=== PATIENT | male | born 1950 | race Caucasian/White ===

== ENCOUNTER 2020-04-02 16:35 | IRF | payer MEDICARE, OTHER, SELFPAY ==
[2020-04-02 17:50] VITALS: BP 119/95; PULSE 86; RESP 20; TEMP 36.2; O2SAT 100; BMI 21.2
--- NOTE | 2020-04-02 18:03 | ADMGEN ---
Arrived via personal transportation and up to room at 1635. This patient, Julián Swain, was admitted to [facility] Room 224-02. Patient/family oriented to hospital policies and general routines including ID bracelet, bed and alarms, visiting hours, pain management, procedures, bathroom and other care routines, personal items, smoking policy, room service/diet, and visiting hours. Information on how to activate the Rapid Response Team has been discussed. Patient/Family are encouraged to report perceived risks to care and to ask questions if they do not understand what they are told or what they should do.
[2020-04-02 20:07] VITALS: PULSE 86
[2020-04-02] MEDS: PYRIDOXINE HCL 50 MG TABLET 100 MG PO (20:07)
[2020-04-02] MEDS: ACYCLOVIR 400 MG TABLET PO (20:07)
[2020-04-02] MEDS: METOPROLOL TARTRATE 12.5 MG TABLET PO (20:07)
[2020-04-02] MEDS: PANTOPRAZOLE 40 MG TABLET PO (20:08)
[2020-04-02 21:49] VITALS: BP 115/55; PULSE 83; RESP 18; TEMP 37.6; O2SAT 97
[2020-04-03 05:06] LABS: Basophils Percent Auto 0.4 % (0.2-1.2); Eosinophils Percent Auto 0.2 % (0-4.4); Hematocrit 28.6 % (42.0-52.0); Hemoglobin 9.5 g/dL (14.0-18.0); Immature Granulocyte Absolute 0.03 K/mm3 (0.00-0.031); Immature Granulocyte Percent A 0.3 % (0-0.5); Lymphocytes Absolute Auto 2.32 K/mm3 (0.9-3.2); Lymphocytes Percent Auto 24.4 % (18.3-44.2); Mean Corpuscular HGB Conc 33.2 g/dl (32-36); Mean Corpuscular Hemoglobin 31.6 pg (26-34); Mean Platelet Volume 11.3 fl (7.4-10.4); Monocytes Absolute Auto 1.8 K/mm3 (0.1-0.6); Monocytes Percent Auto 19.3 % (2.6-8.5); Neutrophils Absolute Auto 5.3 K/mm3 (1.3-6.7); Neutrophils Percent Auto 55.4 % (45.5-73.1); Platelet Count Result 227 k/mm3 (150-375); Red Blood Count 3.01 M/mm3 (4.6-6.20); Red Cell Distribution Width 18.3 % (11.5-14.5); White Blood Count 9.5 K/mm3 (4.5-10.0)
[2020-04-03 05:30] VITALS: BP 116/61; PULSE 88; RESP 12; TEMP 36.8; O2SAT 100
[2020-04-03 05:35] LABS: Anion Gap 6 mmol/L (8-16); Blood Urea Nitrogen 12 mg/dL (9-20); Calcium 8.8 mg/dL (8.4-10.2); Carbon Dioxide 27 mmol/L (22-30); Chloride 101 mmol/L (98-107); Estimated CRCL calculation 67 ml/min; Estimated Glomerular Filt Rate > 60; Glucose 105 mg/dL (75-110); Potassium 4.1 mmol/L (3.4-5.0); Sodium 134 mmol/L (137-145)
[2020-04-03] MEDS: ACYCLOVIR 400 MG TABLET PO ×3 (05:57→20:49)
[2020-04-03 08:22] VITALS: PULSE 96
[2020-04-03] MEDS: CYANOCOBALAMIN 1,000 MCG TABLET 1000 MCG PO (08:22)
[2020-04-03] MEDS: METOPROLOL TARTRATE 12.5 MG TABLET PO ×2 (08:22→20:49)
[2020-04-03] MEDS: PYRIDOXINE HCL 50 MG TABLET 100 MG PO ×2 (08:22→17:20)
[2020-04-03] MEDS: THERAPEUTIC MULTIVITAMINS/MINERALS TAB (*BKC) 1 TABLET PO (08:23)
[2020-04-03] MEDS: PANTOPRAZOLE 40 MG TABLET PO ×2 (08:23→20:49)
--- NOTE | 2020-04-03 09:38 | PCPTNOTE ---
Julián Swain was evaluated for a wheeled walker on 04/03/2020 by this physical therapist. The wheeled walker will resolve patient's mobility limitations and will be used for ADL's within the home. The patient can safely use the wheeled walker. ?The wheeled walker will resolve the patient?s mobility deficits, including decreased strength and endurance.
--- NOTE | 2020-04-03 12:38 | WPDREHABHP ---
H&P: HPI History of Present Illness Date/Time: 04/03/20 12:38 [place] Complaint: GI bleed Narrative: Julián Swain is a 69 year old maleHISTORY OF PRESENT ILLNESS: The patient's primary rehab impairment category i Miscellaneous The etiologic diagnosis is GI bleed I saw this patient [id number] on April 03, 2020 at 11:00 a.m. the patient is 69 years old male with a past medical history of hypertension, PE /DVT, peripheral neuropathy, vertigo, presented to local hospital with anemia in June of 2019 and was found to have a large intra-abdominal mass involving the stomach, His spleen pancreas and left adrenal gland. 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 Pretreatment workup showed an ejection fraction of 59% and COVID-19 negative on February 28, 2020. Following the transplant the patient developed pancytopenia with neutropenic fevers and was started on cefepime. And platelets were 3 and he had an acute onset of abdominal pain, nausea and hematemesis. Blood pressure were low and he developed tachycardia so he was transferred to ICU. He received 2units of platelets and 3units of packed RBCs. Gastroenterology was consulted and the patient underwent an EGD on March 20, 2020 which found an extensive blood clot in the stomach and esophagus. The procedure was long in duration with prolonged attempts to remove blood clots but they were unable to find a source. Radiology was consulted and recommended against angiographic given the complex an [employer] and thrombocytopenia. We ordered a 3 phase CTA off the abdomen pelvis to evaluate the bleeding source once the patient was clinically stable. March 22, 2020 the patient underwent left gastric artery embolization with success. His GI bleed resolved. His hospitalization the patient developed acute respiratory insufficiency and required supplemental oxygen, this has since been weaned and the patient is on room air. Patient has been hospitalized since March 04, 2020 and has been severely debilitated by this lengthy hospitalization, gastric bleed, hemorrhagic shock, and respiratory insufficiency. He requires physical occupational and speech therapy to return to his prior level of independent functioning. He will not require any cancer treatment until he has recovered. He will not discharged on chemical DVT prophylaxis due to GI bleed. COVID: The patient has not traveled outside the [place] her head contact with someone who is ill that has traveled outside the [place] in the past 21 days. The patient has not traveled to an area of the [place] that is experiencing known transmission of the Coronavirus and has not had close personal contact with anyone that has. The patient does not have a fever, Is not experiencing lower respiratory illness symptoms Therapy was initiated at the acute care facility and the patient transferred to us from [facility] on April 02, 2020 FALLS OR SURGERIES: the patient has had major surgery in the last 100 days( EGD on March 20, 2020 and left gastric artery embolization on March 22, 2020) the patient has had no falls in the past year the patient has had no falls with injury in the past year PAST MEDICAL HISTORY: hypertension, PE / DVT, peripheral neuropathy, vertigo, and diffuse large B-cell lymphoma. PAST SURGICAL HISTORY: Tunnel line placement on February 26, 2020, EGD on March 20, 2020, and left gastric artery embolization on March 22, 2020. SOCIAL HISTORY: The patient lives with his and son in a 1 level home with 2 steps to enter. He was independent previously with no assistive device. His and son are available to assist him following rehabilitation if he should need. The patient is have 2 [address]. One in [facility] and 1 [place] was. The patient never smoked, no alcohol o
[2020-04-03 13:56] VITALS: BP 117/70; PULSE 92; RESP 18; TEMP 37.2; O2SAT 97
[2020-04-03 14:33] VITALS: BMI 21.2
[2020-04-03 20:30] VITALS: PULSE 92; RESP 12; O2SAT 93
[2020-04-03 20:49] VITALS: PULSE 90
[2020-04-03 21:36] VITALS: BP 113/72; PULSE 92; RESP 12; TEMP 36.3; O2SAT 93
[2020-04-04] VITALS (7 sets, daily range): BP systolic 107–122; BP diastolic 57–71; PULSE 80–94; RESP 12–20; TEMP 35.9–36.9; O2SAT 98–99
[2020-04-04] MEDS: ACYCLOVIR 400 MG TABLET PO ×3 (06:01→19:32)
[2020-04-04] MEDS: PYRIDOXINE HCL 50 MG TABLET 100 MG PO ×2 (08:22→17:16)
[2020-04-04] MEDS: CYANOCOBALAMIN 1,000 MCG TABLET 1000 MCG PO (08:23)
[2020-04-04] MEDS: THERAPEUTIC MULTIVITAMINS/MINERALS TAB (*BKC) 1 TABLET PO (08:23)
[2020-04-04] MEDS: METOPROLOL TARTRATE 12.5 MG TABLET PO ×2 (08:23→19:32)
[2020-04-04] MEDS: PANTOPRAZOLE 40 MG TABLET PO ×2 (08:23→19:33)
--- NOTE | 2020-04-04 12:21 | WPDNEURORHBP ---
Subjective Date/time seen: 04/04/20 12:21 69 years old admitted to the rehab floor with category of miscellaneous an underlying GI bleed in addition to the history of hypertension, pulmonary emboli with DVT, peripheral neuropathy, and vertigo, high-grade germinal centerDLBCL receiving the physical and occupational therapy Review of Systems Review of Systems: All systems reviewed & are unremarkable except as noted in HPI and below Functional Status Ambulation Ability Ability to Ambulate 10 Feet: Standby Assistance Ability to Ambulate 50 Feet With 2 Turns: Standby Assistance Ability to Ambulate 150 Feet: Standby Assistance Ambulation Assistive Devices: Walker, Wheeled Exam Narrative: Exam Narrative: examination revealed him to be awake alert cooperative ear nose throat examination is normal with no rhinorrhea mucous membranes are moist heart is regular with no murmur, lungs are clear without rhonchi or crepitations, abdomen soft nontender, and neuro examination is unchanged Objective Data Vital Signs Vital Signs: Vital Signs - 24 hr 04/03/20 13:56 04/03/20 20:30 04/03/20 20:49 Temperature 37.2 C Pulse Rate 92 92 90 Respiratory Rate 18 12 Blood Pressure 117/70 Pulse Oximetry 97 93 04/03/20 21:36 04/04/20 05:49 04/04/20 08:00 Temperature 36.3 C L 35.9 C L Pulse Rate 92 83 83 Respiratory Rate 12 12 12 Blood Pressure 113/72 122/71 Pulse Oximetry 93 98 98 04/04/20 08:23 Temperature Pulse Rate 83 Respiratory Rate Blood Pressure Pulse Oximetry Intake/Output Intake/Output: Intake & Output 04/01/20 04/02/20 04/03/20 04/04/20 23:59 23:59 23:59 23:59 Intake Total 240 480 Balance 240 480 Meds/Results Medications: Active Medications Generic Name Dose Route Start Last Admin Trade Name Freq PRN Reason Stop Dose Admin Acyclovir 400 mg 04/02/20 22:00 04/04/20 06:01 Acyclovir 400 Mg Tablet PO 400 mg Q8HR ENE Administration Cyanocobalamin 1,000 mcg 04/03/20 09:00 04/04/20 08:23 Cyanocobalamin 1,000 Mcg Tablet PO 1,000 mcg DAILY ENE Administration Dronabinol 5 mg 04/02/20 21:00 04/03/20 20:48 Dronabinol (*Crx) 2.5 Mg Capsule PO 05/02/20 21:01 5 mg HS ENE Administration Metoprolol Tartrate 12.5 mg 04/02/20 21:00 04/04/20 08:23 Metoprolol Tartrate 12.5 Mg Tablet PO 12.5 mg Q12HR ENE Administration Multivitamins/Calcium 1 tablet 04/03/20 09:00 04/04/20 08:23 Therapeutic Multivitamins/Minerals Tab (*Bkc) PO 1 tablet DAILY ENE Administration Ondansetron HCl 4 mg 04/02/20 18:35 Ondansetron Hcl Odt 4 Mg Tablet PO Q8H PRN Nausea Pantoprazole Sodium 40 mg 04/02/20 21:00 04/04/20 08:23 Pantoprazole 40 Mg Tablet PO 40 mg Q12HR ENE Administration Pyridoxine HCl 100 mg 04/02/20 17:00 04/04/20 08:22 Pyridoxine Hcl 50 Mg Tablet PO 05/03/20 17:01 100 mg BID ENE Administration Progress Note: A&P Additional Plan stable receiving the therapy as outlined and will continued as such
--- NOTE | 2020-04-04 13:03 | RPD ---
INDIVIDUALIZED PLAN OF CARE FOR Julián Swain Brief Synthesis of Pre-Admission Screen, Post-Admission Evaluation and Therapy Evaluations: The patient presents to rehab with an upper GI bleed. Comorbidities include hemorrhagic shock, peripheral neuropathy, acute respiratory insufficiency, anxiety, depression, hematemesis, gastroesophageal reflux disease, malnutrition, acute blood loss anemia, pancytopenia, coagulopathy, diffuse large B-cell lymphoma, leukopenia, and neutropenia. The complexity of the patient's medical management, nursing, and therapy needs require an inpatient rehab hospital stay with a physician-led interdisciplinary team approach. The patient?s needs will be best met in an intensive program vs. at a lower level of care. The patient requires physician services for medical oversight, management of medical complications in setting of present comorbidities, and pain management. The patient requires nursing services for anticoagulation therapy, DVT prophylactics, infection protection, medication management and education, and pressure relief Deficits include:ADLs, Balance, Endurance, Family Training/Education, Mobility, Pain Management, ROM, Safety, Strength, Swallowing, and Transfers. Video Game Script Writer/Case Management for: Discharge Planning and Patient/Family Counseling Physical Therapy: 5 days per week for 75 minutes. Treatments may include: Therapeutic Exercise, Gait Training, Neuromuscular Re-education, Transfer Training, Community Reintegration, Bed Mobility, Patient/Family Education, Wheelchair Mobility Group Therapy/Concurrent Therapy Rationales: -Improve attention span during functional activities in a distracted environment. -Enhance problem solving and/or adequate judgment skills during functional activities in a distracted environment. -Promote increased safety awareness in a distracted environment to reduce fall risk with functional tasks, transfers, and ambulation to allow a more safe, self-sufficient return to the home environment. -Improve dynamic balance skills to promote safety and independence with functional activities in a distracted environment for maximum gain. Occupational Therapy: 5 days per week for 75 minutes. Treatments may include: Therapeutic Exercise, Therapeutic Activity, Cognitive Training, Self-Care Transfer Training, Community Reintegration, Home Management, Patient/Family Education, Wheelchair Mobility Training, Energy Conservation Training Group Therapy/Concurrent Therapy Rationales: -Allow therapist to observe and teach generalization and carry-over of skills learned in individual therapy. -Enhance problem solving and sequencing skills during therapeutic activities in a distracted environment. -Promote increased safety awareness in a realistic setting to reduce fall risk with functional tasks due to visual and verbal distractions. -Increase functional level with ADLs, ADL transfers and use of adaptive equipment through therapeutic activities with others while promoting safety to allow a more safe, self-sufficient return home. Speech Therapy: 5 days per week for 30 minutes. Treatments may include: Dysphasia Therapy, Speech/Language/Communication Therapy, Cognitive Training, Patient/Family Education Group Therapy/Concurrent Therapy - Rationale: -Allow therapist to observe and teach generalization and carry-over of skills learned in individual therapy. -Improve comprehension skills with complex or abstract ideas through discussion in a realistic setting. -Enhance problem solving skills with complex issues during activities in a distracted environment. -Promote increased memory skills and concentration in a distracted environment for a safe transition home. -Improve attention and focus with language/communication skills in a realistic and supportive therapeutic setting. -Allow for practice of expression of basic needs and ideas through functional activities with others. Medical Prognosis: Good Anticipated Length of St
[2020-04-05] MEDS: ACYCLOVIR 400 MG TABLET PO ×3 (05:35→20:49)
[2020-04-05 05:52] VITALS: BP 135/67; PULSE 103; RESP 20; TEMP 37.6; O2SAT 98
[2020-04-05 08:29] VITALS: PULSE 100
[2020-04-05] MEDS: PANTOPRAZOLE 40 MG TABLET PO ×2 (08:29→20:49)
[2020-04-05] MEDS: PYRIDOXINE HCL 50 MG TABLET 100 MG PO ×2 (08:29→17:30)
[2020-04-05] MEDS: METOPROLOL TARTRATE 12.5 MG TABLET PO ×2 (08:29→20:49)
[2020-04-05] MEDS: THERAPEUTIC MULTIVITAMINS/MINERALS TAB (*BKC) 1 TABLET PO (08:29)
[2020-04-05] MEDS: CYANOCOBALAMIN 1,000 MCG TABLET 1000 MCG PO (08:29)
[2020-04-05 14:00] VITALS: BP 147/76; PULSE 89; RESP 20; TEMP 37.1; O2SAT 96
--- NOTE | 2020-04-05 14:17 | PCDIET ---
Nutrition Follow-Up Complete: Nutrition Diagnosis: Involuntary weight loss related to decreased appetite as evidenced by patient report on admission, information obtained by nursing. Nutrition Goal: Patient to consume 75% of meals/supplements or greater. Goal not met. Patient consumed average of 30% of meals on minced and moist diet since 04/03/20, but does report taking some of the Ensure Clear supplements. Reports unable to tolerate Frozen Nutritional treat. Recommend increasing Ensure Clear from BID to TID and stopping Frozen Treat. Small, frequent meals and snacks encouraged. Patient reports altered taste/smell as main deterrent to eating but may benefit from alternative appetite stimulant if Marinol not effective in improving appetite. Last recorded weight is 71.2 kg. Recommend obtaining new weight. Bowel Motility: Last documented BM on 04/03/20. Labs Reviewed: No new labs available. Meds Noted: Acyclovir, Vitamin B12, Marinol, Lopressor, MVI/minerals, Protonix, Vitamin B6 Additional Notes: No documented skin breakdown. Will continue to monitor with same goals. Nutrition Monitoring and Evaluation: Follow up every 5 days.
[2020-04-05 20:49] VITALS: PULSE 88
[2020-04-05 21:34] VITALS: BP 127/67; PULSE 95; RESP 20; TEMP 37.4; O2SAT 98
[2020-04-06 05:37] VITALS: BP 137/70; PULSE 88; RESP 20; TEMP 36.8; O2SAT 97
[2020-04-06] MEDS: ACYCLOVIR 400 MG TABLET PO ×3 (06:46→20:59)
[2020-04-06 09:22] VITALS: PULSE 88
[2020-04-06] MEDS: METOPROLOL TARTRATE 12.5 MG TABLET PO ×2 (09:22→21:00)
[2020-04-06] MEDS: PYRIDOXINE HCL 50 MG TABLET 100 MG PO ×2 (09:23→17:42)
[2020-04-06] MEDS: CYANOCOBALAMIN 1,000 MCG TABLET 1000 MCG PO (09:23)
[2020-04-06] MEDS: THERAPEUTIC MULTIVITAMINS/MINERALS TAB (*BKC) 1 TABLET PO (09:23)
[2020-04-06] MEDS: PANTOPRAZOLE 40 MG TABLET PO ×2 (09:23→20:59)
[2020-04-06 14:00] VITALS: BP 134/76; PULSE 86; RESP 18; TEMP 37.2; O2SAT 98
--- NOTE | 2020-04-06 14:50 | WPDNEURORHBP ---
Subjective Date/time seen: 04/06/20 14:50 69 years old admitted with the history of GI bleed with hypertension, but pulmonary emboli with DVT, peripheral neuropathy, vertigo, and high-grade germinal center tumor Review of Systems Review of Systems: All systems reviewed & are unremarkable except as noted in HPI and below Functional Status Ambulation Ability Ability to Ambulate 10 Feet: Independent Ability to Ambulate 50 Feet With 2 Turns: Independent Ability to Ambulate 150 Feet: Standby Assistance Ambulation Assistive Devices: Walker, Wheeled Transfers Ability Ability to Transfer In/Out of Chair: Standby Assistance Exam Narrative: Exam Narrative: he is awake alert cooperative. In no obvious distress. Ear nose throat examination is normal. Mucous membranes are moist. Neck is supple. Heart regular with no murmur. Lungs are clear with no rhonchi or crepitations. Abdomen is soft nontender. Neuro examination is unchanged Objective Data Vital Signs Vital Signs: Vital Signs - 24 hr 04/05/20 20:49 04/05/20 21:34 04/06/20 05:37 Temperature 37.4 C 36.8 C Pulse Rate 88 95 88 Respiratory Rate 20 20 Blood Pressure 127/67 137/70 Pulse Oximetry 98 97 04/06/20 09:22 04/06/20 14:00 Temperature 37.2 C Pulse Rate 88 86 Respiratory Rate 18 Blood Pressure 134/76 Pulse Oximetry 98 Intake/Output Intake/Output: Intake & Output 04/03/20 04/04/20 04/05/20 04/06/20 23:59 23:59 23:59 23:59 Intake Total 480 360 720 480 Balance 480 360 720 480 Meds/Results Medications: Active Medications Generic Name Dose Route Start Last Admin Trade Name Freq PRN Reason Stop Dose Admin Acyclovir 400 mg 04/02/20 22:00 04/06/20 14:14 Acyclovir 400 Mg Tablet PO 400 mg Q8HR ENE Administration Cyanocobalamin 1,000 mcg 04/03/20 09:00 04/06/20 09:23 Cyanocobalamin 1,000 Mcg Tablet PO 1,000 mcg DAILY ENE Administration Dronabinol 5 mg 04/02/20 21:00 04/05/20 20:50 Dronabinol (*Crx) 2.5 Mg Capsule PO 05/02/20 21:01 5 mg HS ENE Administration Metoprolol Tartrate 12.5 mg 04/02/20 21:00 04/06/20 09:22 Metoprolol Tartrate 12.5 Mg Tablet PO 12.5 mg Q12HR ENE Administration Multivitamins/Calcium 1 tablet 04/03/20 09:00 04/06/20 09:23 Therapeutic Multivitamins/Minerals Tab (*Bkc) PO 1 tablet DAILY ENE Administration Ondansetron HCl 4 mg 04/02/20 18:35 Ondansetron Hcl Odt 4 Mg Tablet PO Q8H PRN Nausea Pantoprazole Sodium 40 mg 04/02/20 21:00 04/06/20 09:23 Pantoprazole 40 Mg Tablet PO 40 mg Q12HR ENE Administration Pyridoxine HCl 100 mg 04/02/20 17:00 04/06/20 09:23 Pyridoxine Hcl 50 Mg Tablet PO 05/03/20 17:01 100 mg BID ENE Administration Progress Note: A&P Assessment and Plan (1) Lymphoma malignant, large cell: Code(s): C85.80 - Other specified types of non-Hodgkin lymphoma, unspecified site Status: Acute (2) Peripheral neuropathy: Code(s): G62.9 - Polyneuropathy, unspecified Status: Acute (3) Hypertension: Code(s): I10 - Essential (primary) hypertension Status: Acute (4) Upper GI bleed: Code(s): K92.2 - Gastrointestinal hemorrhage, unspecified Status: Acute (5) Miscellaneous gastroenterology and urology devices associated with adverse incidents, not elsewhere classified: Code(s): Y73.8 - Miscellaneous gastroenterology and urology devices associated with adverse incidents, not elsewhere classified Status: Acute Additional Plan stable
[2020-04-06 20:00] VITALS: PULSE 90; RESP 16; O2SAT 97
[2020-04-06 20:23] VITALS: BP 120/62; PULSE 92; RESP 16; TEMP 37.5; O2SAT 97
[2020-04-06 21:00] VITALS: PULSE 84
[2020-04-07] MEDS: ACYCLOVIR 400 MG TABLET PO ×3 (05:36→21:23)
[2020-04-07 05:42] VITALS: BP 104/54; PULSE 91; RESP 18; TEMP 36.9; O2SAT 96
[2020-04-07 09:16] VITALS: PULSE 91
[2020-04-07] MEDS: PYRIDOXINE HCL 50 MG TABLET 100 MG PO ×2 (09:16→17:00)
[2020-04-07] MEDS: CYANOCOBALAMIN 1,000 MCG TABLET 1000 MCG PO (09:16)
[2020-04-07] MEDS: METOPROLOL TARTRATE 12.5 MG TABLET PO ×2 (09:16→20:20)
[2020-04-07] MEDS: PANTOPRAZOLE 40 MG TABLET PO ×2 (09:16→20:20)
[2020-04-07] MEDS: THERAPEUTIC MULTIVITAMINS/MINERALS TAB (*BKC) 1 TABLET PO (09:16)
[2020-04-07 14:00] VITALS: BP 138/68; PULSE 86; RESP 20; TEMP 36.2; O2SAT 95
[2020-04-07 20:20] VITALS: PULSE 98
[2020-04-07 21:40] VITALS: BP 136/83; PULSE 115; RESP 12; TEMP 36.9; O2SAT 97
[2020-04-07 23:11] VITALS: PULSE 93
[2020-04-08] MEDS: ACYCLOVIR 400 MG TABLET PO ×3 (05:25→21:15)
[2020-04-08 05:30] VITALS: BP 98/50; PULSE 91; RESP 12; TEMP 36.1; O2SAT 100
[2020-04-08 08:28] VITALS: PULSE 90
[2020-04-08] MEDS: METOPROLOL TARTRATE 12.5 MG TABLET PO ×2 (08:28→21:15)
[2020-04-08] MEDS: CYANOCOBALAMIN 1,000 MCG TABLET 1000 MCG PO (08:28)
[2020-04-08] MEDS: PYRIDOXINE HCL 50 MG TABLET 100 MG PO ×2 (08:28→16:40)
[2020-04-08] MEDS: PANTOPRAZOLE 40 MG TABLET PO ×2 (08:28→21:15)
[2020-04-08] MEDS: THERAPEUTIC MULTIVITAMINS/MINERALS TAB (*BKC) 1 TABLET PO (08:28)
--- NOTE | 2020-04-08 11:06 | WPDNEURORHBP ---
Subjective Date/time seen: 04/08/20 11:06 69 years old with history of GI bleed, hypertension, pulmonary emboli, DVT, peripheral neuropathy, vertigo, and high-grade germinal center tumor has been involved in the physical therapy and occupational therapy and doing fairly well, his diet will be increase. Review of Systems Review of Systems: All systems reviewed & are unremarkable except as noted in HPI and below Functional Status Ambulation Ability Ability to Ambulate 10 Feet: Independent Ability to Ambulate 50 Feet With 2 Turns: Independent Ability to Ambulate 150 Feet: Independent Ambulation Assistive Devices: Walker, Wheeled Transfers Ability Ability to Transfer In/Out of Chair: Independent Exam Narrative: Exam Narrative: on examination he is awake alert cooperative. His speech nor dysphasic not dysarthric not dysphonic. Neck supple. Heart regular with no murmur. Lungs clear with no rhonchi or crepitations. Abdomen soft with normal bowel sounds. Neuro examination reveals him to have no focal motor deficit. Objective Data Vital Signs Vital Signs: Vital Signs - 24 hr 04/07/20 14:00 04/07/20 20:20 04/07/20 21:40 Temperature 36.2 C L 36.9 C Pulse Rate 86 98 115 H Respiratory Rate 20 12 Blood Pressure 138/68 136/83 Pulse Oximetry 95 97 04/07/20 23:11 04/08/20 05:30 04/08/20 08:28 Temperature 36.1 C L Pulse Rate 93 91 90 Respiratory Rate 12 Blood Pressure 98/50 L Pulse Oximetry 100 Intake/Output Intake/Output: Intake & Output 04/05/20 04/06/20 04/07/20 04/08/20 23:59 23:59 23:59 23:59 Intake Total 720 720 720 240 Balance 720 720 720 240 Meds/Results Medications: Active Medications Generic Name Dose Route Start Last Admin Trade Name Freq PRN Reason Stop Dose Admin Acyclovir 400 mg 04/02/20 22:00 04/08/20 05:25 Acyclovir 400 Mg Tablet PO 400 mg Q8HR ENE Administration Cyanocobalamin 1,000 mcg 04/03/20 09:00 04/08/20 08:28 Cyanocobalamin 1,000 Mcg Tablet PO 1,000 mcg DAILY ENE Administration Dronabinol 5 mg 04/02/20 21:00 04/07/20 20:42 Dronabinol (*Crx) 2.5 Mg Capsule PO 05/02/20 21:01 5 mg HS ENE Administration Metoprolol Tartrate 12.5 mg 04/02/20 21:00 04/08/20 08:28 Metoprolol Tartrate 12.5 Mg Tablet PO 12.5 mg Q12HR ENE Administration Multivitamins/Calcium 1 tablet 04/03/20 09:00 04/08/20 08:28 Therapeutic Multivitamins/Minerals Tab (*Bkc) PO 1 tablet DAILY ENE Administration Ondansetron HCl 4 mg 04/02/20 18:35 Ondansetron Hcl Odt 4 Mg Tablet PO Q8H PRN Nausea Pantoprazole Sodium 40 mg 04/02/20 21:00 04/08/20 08:28 Pantoprazole 40 Mg Tablet PO 40 mg Q12HR ENE Administration Pyridoxine HCl 100 mg 04/02/20 17:00 04/08/20 08:28 Pyridoxine Hcl 50 Mg Tablet PO 05/03/20 17:01 100 mg BID ENE Administration Progress Note: A&P Assessment and Plan (1) Lymphoma malignant, large cell: Code(s): C85.80 - Other specified types of non-Hodgkin lymphoma, unspecified site Status: Acute (2) Peripheral neuropathy: Code(s): G62.9 - Polyneuropathy, unspecified Status: Acute (3) Hypertension: Code(s): I10 - Essential (primary) hypertension Status: Acute (4) Upper GI bleed: Code(s): K92.2 - Gastrointestinal hemorrhage, unspecified Status: Acute (5) Miscellaneous gastroenterology and urology devices associated with adverse incidents, not elsewhere classified: Code(s): Y73.8 - Miscellaneous gastroenterology and urology devices associated with adverse incidents, not elsewhere classified Status: Acute Additional Plan His stable continue the treatment as such. His diet has been advanced
[2020-04-08 14:00] VITALS: BP 115/75; PULSE 91; RESP 18; TEMP 37.2; O2SAT 100
[2020-04-08 20:38] VITALS: BP 112/56; PULSE 85; RESP 18; TEMP 36.7; O2SAT 98
[2020-04-08 21:15] VITALS: PULSE 84
[2020-04-09 05:21] VITALS: BP 101/55; PULSE 83; RESP 20; TEMP 37.1; O2SAT 99
[2020-04-09] MEDS: ACYCLOVIR 400 MG TABLET PO ×3 (05:43→20:21)
[2020-04-09 10:21] VITALS: PULSE 83
[2020-04-09] MEDS: METOPROLOL TARTRATE 12.5 MG TABLET PO ×2 (10:21→20:20)
[2020-04-09] MEDS: CYANOCOBALAMIN 1,000 MCG TABLET 1000 MCG PO (10:21)
[2020-04-09] MEDS: THERAPEUTIC MULTIVITAMINS/MINERALS TAB (*BKC) 1 TABLET PO (10:22)
[2020-04-09] MEDS: PYRIDOXINE HCL 50 MG TABLET 100 MG PO ×2 (10:22→18:25)
[2020-04-09] MEDS: PANTOPRAZOLE 40 MG TABLET PO ×2 (10:22→20:21)
[2020-04-09 14:00] VITALS: BP 120/66; PULSE 90; RESP 20; TEMP 36.8; O2SAT 99
--- NOTE | 2020-04-09 15:45 | PC.NURSE ---
Cultures at [place] showed no growth.
--- NOTE | 2020-04-09 17:25 | WPDNEURORHBP ---
Subjective Date/time seen: 04/09/20 17:25 69 years old admitted to the rehab floor with history of GI bleed, hypertension, pulmonary emboli, DVT, peripheral neuropathy, vertigo, and high-grade germinal center tumor he has been involved the physical therapy and occupational therapy regularly we had a discussion in the family meeting there were concern about the possibility of modified barium swallow in addition to difficulties in taking care of him at home generally he is stable and doing well. CBC was on 04/03 we will repeat this evening before he goes home tomorrow Review of Systems Review of Systems: All systems reviewed & are unremarkable except as noted in HPI and below Functional Status Ambulation Ability Ability to Ambulate 10 Feet: Independent Ability to Ambulate 50 Feet With 2 Turns: Independent Ability to Ambulate 150 Feet: Independent Ambulation Assistive Devices: Walker, Wheeled Transfers Ability Ability to Transfer In/Out of Chair: Independent Exam Narrative: Exam Narrative: on examination he is awake alert cooperative in no obvious acute distress ear nose throat examination is normal with no more rhinorrhea neck is supple with no cervical bruit no thyromegaly no lymphadenopathy heart regular with no murmur lungs are clear with no rhonchi or crepitation abdomen is soft with normal bowel sounds nontender logical examination unchanged. Objective Data Vital Signs Vital Signs: Vital Signs - 24 hr 04/08/20 20:38 04/08/20 21:15 04/09/20 05:21 Temperature 36.7 C 37.1 C Pulse Rate 85 84 83 Respiratory Rate 18 20 Blood Pressure 112/56 L 101/55 L Pulse Oximetry 98 99 04/09/20 10:21 04/09/20 14:00 Temperature 36.8 C Pulse Rate 83 90 Respiratory Rate 20 Blood Pressure 120/66 Pulse Oximetry 99 Intake/Output Intake/Output: Intake & Output 04/06/20 04/07/20 04/08/20 04/09/20 23:59 23:59 23:59 23:59 Intake Total 720 720 480 480 Balance 720 720 480 480 Meds/Results Medications: Active Medications Generic Name Dose Route Start Last Admin Trade Name Freq PRN Reason Stop Dose Admin Acyclovir 400 mg 04/02/20 22:00 04/09/20 13:14 Acyclovir 400 Mg Tablet PO 400 mg Q8HR ENE Administration Cyanocobalamin 1,000 mcg 04/03/20 09:00 04/09/20 10:21 Cyanocobalamin 1,000 Mcg Tablet PO 1,000 mcg DAILY ENE Administration Dronabinol 5 mg 04/02/20 21:00 04/08/20 21:15 Dronabinol (*Crx) 2.5 Mg Capsule PO 05/02/20 21:01 5 mg HS ENE Administration Metoprolol Tartrate 12.5 mg 04/02/20 21:00 04/09/20 10:21 Metoprolol Tartrate 12.5 Mg Tablet PO 12.5 mg Q12HR ENE Administration Multivitamins/Calcium 1 tablet 04/03/20 09:00 04/09/20 10:22 Therapeutic Multivitamins/Minerals Tab (*Bkc) PO 1 tablet DAILY ENE Administration Ondansetron HCl 4 mg 04/02/20 18:35 Ondansetron Hcl Odt 4 Mg Tablet PO Q8H PRN Nausea Pantoprazole Sodium 40 mg 04/02/20 21:00 04/09/20 10:22 Pantoprazole 40 Mg Tablet PO 40 mg Q12HR ENE Administration Pyridoxine HCl 100 mg 04/02/20 17:00 04/09/20 10:22 Pyridoxine Hcl 50 Mg Tablet PO 05/03/20 17:01 100 mg BID ENE Administration Progress Note: A&P Assessment and Plan (1) Lymphoma malignant, large cell: Code(s): C85.80 - Other specified types of non-Hodgkin lymphoma, unspecified site Status: Acute (2) Peripheral neuropathy: Code(s): G62.9 - Polyneuropathy, unspecified Status: Acute (3) Hypertension: Code(s): I10 - Essential (primary) hypertension Status: Acute (4) Upper GI bleed: Code(s): K92.2 - Gastrointestinal hemorrhage, unspecified Status: Acute (5) Miscellaneous gastroenterology and urology devices associated with adverse incidents, not elsewhere classified: Code(s): Y73.8 - Miscellaneous gastroenterology and urology devices associated with adverse incidents, not elsewhere classified Status: Acute Additional Plan Patient
[2020-04-09 19:56] LABS: Hematocrit 24.4 % (42.0-52.0); Hemoglobin 8.3 g/dL (14.0-18.0); Mean Corpuscular Hemoglobin 32.3 pg (26-34); Mean Corpuscular Volume 94.9 fl (80-100); Mean Platelet Volume 10.6 fl (7.4-10.4); Platelet Count Result 278 k/mm3 (150-375); Red Blood Count 2.57 M/mm3 (4.6-6.20); Red Cell Distribution Width 17.4 % (11.5-14.5); White Blood Count 7.8 K/mm3 (4.5-10.0)
[2020-04-09 20:11] LABS: Anion Gap 8 mmol/L (8-16); Blood Urea Nitrogen 10 mg/dL (9-20); Calcium 8.4 mg/dL (8.4-10.2); Carbon Dioxide 27 mmol/L (22-30); Chloride 96 mmol/L (98-107); Estimated CRCL calculation 76 ml/min; Estimated Glomerular Filt Rate > 60; Glucose 125 mg/dL (75-110); Potassium 3.2 mmol/L (3.4-5.0); Sodium 131 mmol/L (137-145)
[2020-04-09 20:20] VITALS: PULSE 88
[2020-04-09 20:48] VITALS: BP 95/77; PULSE 70; RESP 18; TEMP 36.6; O2SAT 97
[2020-04-10 05:17] VITALS: BP 94/53; PULSE 80; RESP 18; TEMP 36.2; O2SAT 97
[2020-04-10] MEDS: ACYCLOVIR 400 MG TABLET PO ×2 (06:04→13:14)
[2020-04-10 06:22] LABS: Basophils Percent Auto 0.6 % (0.2-1.2); Eosinophils Absolute Auto 0.2 K/mm3 (0-0.3); Eosinophils Percent Auto 2.6 % (0-4.4); Hematocrit 25.2 % (42.0-52.0); Hemoglobin 8.4 g/dL (14.0-18.0); Immature Granulocyte Absolute 0.05 K/mm3 (0.00-0.031); Immature Granulocyte Percent A 0.8 % (0-0.5); Lymphocytes Absolute Auto 1.54 K/mm3 (0.9-3.2); Lymphocytes Percent Auto 24.6 % (18.3-44.2); Mean Corpuscular HGB Conc 33.3 g/dl (32-36); Mean Corpuscular Hemoglobin 31.9 pg (26-34); Mean Corpuscular Volume 95.8 fl (80-100); Mean Platelet Volume 10.8 fl (7.4-10.4); Monocytes Absolute Auto 1.9 K/mm3 (0.1-0.6); Monocytes Percent Auto 29.5 % (2.6-8.5); Neutrophils Absolute Auto 2.6 K/mm3 (1.3-6.7); Neutrophils Percent Auto 41.9 % (45.5-73.1); Platelet Count Result 263 k/mm3 (150-375); Red Blood Count 2.63 M/mm3 (4.6-6.20); Red Cell Distribution Width 17.6 % (11.5-14.5); White Blood Count 6.3 K/mm3 (4.5-10.0)
[2020-04-10 07:06] LABS: Platelet Estimate Adequate (Adequate)
[2020-04-10 07:07] LABS: Anisocytosis 1+ (NORMAL); Hypochromasia 1+ (NORMAL); Microcytosis 1+ (NORMAL)
[2020-04-10 08:33] LABS: Anion Gap 5 mmol/L (8-16); Blood Urea Nitrogen 7 mg/dL (9-20); Calcium 8.8 mg/dL (8.4-10.2); Carbon Dioxide 31 mmol/L (22-30); Chloride 98 mmol/L (98-107); Estimated CRCL calculation 76 ml/min; Estimated Glomerular Filt Rate > 60; Glucose 100 mg/dL (75-110); Potassium 3.3 mmol/L (3.4-5.0); Sodium 134 mmol/L (137-145)
[2020-04-10] MEDS: PYRIDOXINE HCL 50 MG TABLET 100 MG PO (08:39)
[2020-04-10] MEDS: PANTOPRAZOLE 40 MG TABLET PO (08:39)
[2020-04-10] MEDS: THERAPEUTIC MULTIVITAMINS/MINERALS TAB (*BKC) 1 TABLET PO (08:39)
[2020-04-10 08:40] VITALS: PULSE 80
[2020-04-10] MEDS: METOPROLOL TARTRATE 12.5 MG TABLET PO (08:40)
[2020-04-10] MEDS: CYANOCOBALAMIN 1,000 MCG TABLET 1000 MCG PO (08:40)
--- NOTE | 2020-04-11 12:31 | PM.DS ---
DS: Admitting Diagnosis Admitting Diagnosis Admitting Diagnosis: GI bleed DS: Summary Hospital Course Hospital Course: remained stable, gradually improved, and became independent in all modalities Time Spent with Patient Time attestation: Total time spent providing and/or coordinating discharge services: Exam Narrative: Exam Narrative: ADMISSION FUNCTION:69 years old admitted to the hospital with primary rehab impairment category of miscellaneous an etiological diagnosis of GI bleed in addition to the comorbid conditions of 1. Hypertension 2. Pulmonary emboli with deep vein thrombosis 3. Peripheral neuropathy 4. Vertigo 5. 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 He was not to receive any cancer treatment up until completely recovers.COVID: COVID was negative by history. At the time of admission as per the information available he was requiring assistance as follows. Eating Independent Oral Care partial assistance Toileting Hygiene supervision Shower/Bathing substantial Lower Body Dressing partial assistance and only set up for the upper body dressing Donning/Shickley Footwear supervision Rolling Left and Right unable Sit to Lying unable Lying to Sitting supervision Sit to Stand partial assistance Bed to Chair Transfers partial compliance assistant Toilet Transfers partial compliance assistant Car Transfers supervision Walking 10' supervision Walking 50' with Two Turns super Walking 150' unable Curb or Step supervision 4 Steps partial compliance assistant 12 Steps unable Picking Up Object super vision [Wheelchair Mobility 50'] not applicable [Wheelchair Mobility 150'] not applicable GOALS: Eating [INDEPENDENT] Oral Care [INDEPENDENT] Toileting Hygiene [INDEPENDENT] Shower/Bathing [INDEPENDENT] Upper Body Dressing [INDEPENDENT] Lower Body Dressing [INDEPENDENT] Donning/Shickley Footwear [INDEPENDENT] Rolling Left and Right [INDEPENDENT] Sit to Lying [INDEPENDENT] Lying to Sitting [INDEPENDENT] Sit to Stand [INDEPENDENT] Bed to Chair Transfers [INDEPENDENT] Toilet Transfers [INDEPENDENT] Car Transfers [INDEPENDENT] Walking 10' [INDEPENDENT] Walking 50' with Two Turns [INDEPENDENT] Walking 150' [INDEPENDENT] Curb or Step [INDEPENDENT] 4 Steps [INDEPENDENT] 12 Steps [INDEPENDENT] Picking Up Object [INDEPENDENT] [Wheelchair Mobility 50'] [INDEPENDENT] [Wheelchair Mobility 150'] [INDEPENDENT] DISCHARGE PERFORMANCE: Eating [INDEPENDENT] Oral Care [INDEPENDENT] Toileting Hygiene [INDEPENDENT] Shower/Bathing [INDEPENDENT] Upper Body Dressing [INDEPENDENT] Lower Body Dressing [INDEPENDENT] Donning/Shickley Footwear [INDEPENDENT] Rolling Left and Right [INDEPENDENT] Sit to Lying [INDEPENDENT] Lying to Sitting [INDEPENDENT] Sit to Stand [INDEPENDENT] Bed to Chair Transfers [INDEPENDENT] Toilet Transfers [INDEPENDENT] Car Transfers [INDEPENDENT] Walking 10' [INDEPENDENT] Walking 50' with Two Turns [INDEPENDENT] Walking 150' [INDEPENDENT] Curb or Step [INDEPENDENT] 4 Steps [INDEPENDENT] 12 Steps [INDEPENDENT] Picking Up Object [INDEPENDENT] [Wheelchair Mobility 50'] not applicable [Wheelchair Mobility 150'] not applicable during the hospitalization patient was involved in the physical therapy and occupational therapy on a regular basis, no other consultants were involved in his care, at the time of discharge he was able to ambulate 150ft independently using a wheeled walker and was able to transfer in and out of chair independently the general physical examination remained stable. During the entire hospitalization patient had no fall and his condition improved The patient had [no falls]. Discharge Plan Discharge Attending physician on discharge: Ervin Bazzi Discharging Clinician: Ervin Bazzi Anticipated Discharge Date/Time: 04/10/20 13:17 Patient Disposition: Home Health Service Activity: as tolerated Diet: r
== END 2020-04-10 14:05 | disposition home or self-care (01) | DRG 949 ==
PROVIDERS: Admitting Provider Psychiatry & Neurology Neurology; Visit Provider Psychiatry & Neurology Neurology
DX: Z48.812 Encounter for surgical aftercare following surgery on the circulatory system (principal); C85.80 Other specified types of non-Hodgkin lymphoma, unspecified site; D61.818 Other pancytopenia; D68.9 Coagulation defect, unspecified; F41.8 Other specified anxiety disorders; G62.9 Polyneuropathy, unspecified; I10 Essential (primary) hypertension; K21.9 Gastro-esophageal reflux disease without esophagitis; Y73.8 Miscellaneous gastroenterology and urology devices associated with adverse incidents, not elsewhere classified; Z86.718 Personal history of other venous thrombosis and embolism; Z86.711 Personal history of pulmonary embolism; Z98.890 Other specified postprocedural states
CPT/HCPCS: 36415; 80048; 85025; 85027; 92526; 92610; 97110; 97116; 97161; 97166; 97530; 97535; A9270